=== PATIENT | male | born 1950 | race Caucasian/White ===

== ENCOUNTER → 2018-03-04 | Outpatient (CLI) | payer OTHER ==
[~2018-03-04] MED LIST: ENAL10 PO; SIMV40 PO; TEMA30 PO
== END | disposition home or self-care (01) ==
LOC: LAB 13:51 → LAB SHORT 13:51
DX: N39.0 Urinary tract infection, site not specified (principal)
CPT/HCPCS: 87086

== ENCOUNTER → 2018-03-26 | Outpatient (CLI) | payer OTHER ==
[2018-03-26 13:42] LABS: Appearance, Urine Clear (Clear); Bilirubin, Urine Neg (Neg); Blood, Urine 1+ (Neg); Color, Urine Yellow (P-Yellow); Glucose Qualitative, Urine 3+ (Neg); Ketones, Urine Neg (Neg); Leukocyte Esterase, Urine Neg (Neg); Nitrite, Urine Neg (Neg); Protein, Urine 2+ (Neg); Urobilinogen, Urine NORM (Normal)
[2018-03-26 13:58] LABS: Bacteria Rare /hpf; Red Blood Cells, Urine 0-2 /hpf (0-2); Squamous Epithelial Cells Few /hpf (Few); White Blood Cells, Urine 0-2 /hpf (0-5)
== END ==
LOC: LAB SHORT 11:03 → LAB 11:03
PROVIDERS: Family Medicine
DX: R31.9 Hematuria, unspecified (principal)
CPT/HCPCS: 81001

== ENCOUNTER 2018-06-04 07:16 | Day surgery (SDC) | payer OTHER ==
[~2018-06-04] VITALS: Ht 175.3 cm; Wt 105.2 kg
[~2018-06-04 07:16] MED LIST changes: +Depo-Testo100 MG/1 M IM; +Omeprazole20 M1 PO
== END 2018-06-04 22:41 | disposition home or self-care (01) ==
LOC: ORSCMMR 07:16 → ORD 08:45 → ORSCMMR 22:41
PROVIDERS: Surgery
PROC: BF031ZZ Plain Radiography of Gallbladder and Bile Ducts using Low Osmolar Contrast (ICD-10-PCS; principal; 2018-06-04 08:45)
PROC: 0FT44ZZ Resection of Gallbladder, Percutaneous Endoscopic Approach (ICD-10-PCS; principal; 2018-06-04 08:45)
DX: K80.10 Calculus of gallbladder with chronic cholecystitis without obstruction (principal); K21.9 Gastro-esophageal reflux disease without esophagitis; Z79.899 Other long term (current) drug therapy
CPT/HCPCS: 74300; 88304; C1729; J0690; J1100; J1885; J2250; J2405; J3010; J7030; J7120

== ENCOUNTER 2019-09-04 12:17 | Day surgery (SDC) | payer OTHER ==
[~2019-09-04] VITALS: Ht 175.3 cm; Wt 100.3 kg
--- NOTE | 2019-09-04 14:38 | NUR ---
History, Chart, Medications and Allergies reviewed before start of procedure. Patient confirms NPO status and agrees with scheduled surgery. Lungs clear T/O to Auscultation. Patient States Post-Procedure ride home has been arranged. Patient states colon prep results clear.
--- NOTE | 2019-09-04 14:53 | NUR ---
REPORT TO DOMINGO Flores RN.
[2019-09-04] MEDS ORDERED: PROP10 PO (14:55)
--- NOTE | 2019-09-04 15:42 | NUR ---
09/04/19 1542 Caden Issa History, Chart, Medications and Allergies reviewed before start of procedure.PATIENT DETERMINED TO BE ASA APPROPRIATE FOR PROPOFOL SEDATION PRIOR TO START OF PROCEDURE BY . MONITOR INTACT WITH CONTINUOUS PULSE OXIMETRY AND INTERMITTENT BP.3-LEAD EKG REVIEWED WITH PHYSICIAN PRIOR TO START OF PROCEDURE.O2 VIA N/C INTACT THROUGHOUT SEDATION/PROCEDURE.
--- NOTE | 2019-09-04 16:49 | NUR ---
"DAY SURGERY RN | DISCHARGE VSS. A/O. DENIES PAIN AND NAUSEA. DISCHARGE INSTRUCTIONS GIVEN BY MIGUELITO TRAMMELL. DENIES FURTHER QUESTIONS. TAKEN IN WHEELCHAIR TO FRONT ENTRANCE BY MIGUELITO TRAMMELL FOR RIDE HOME FROM . NO ISSUES."
== END 2019-09-04 23:35 | disposition home or self-care (01) ==
LOC: ORSCMMR 12:17 → ORD 14:00 → ORSCMMR 23:35
PROVIDERS: Internal Medicine Gastroenterology
PROC: 0DBL8ZX Excision of Transverse Colon, Via Natural or Artificial Opening Endoscopic, Diagnostic (ICD-10-PCS; principal; 2019-09-04 14:00)
PROC: 0DBM8ZX Excision of Descending Colon, Via Natural or Artificial Opening Endoscopic, Diagnostic (ICD-10-PCS; principal; 2019-09-04 14:00)
PROC: 0DBP8ZX Excision of Rectum, Via Natural or Artificial Opening Endoscopic, Diagnostic (ICD-10-PCS; principal; 2019-09-04 14:00)
DX: R19.4 Change in bowel habit (principal); K59.00 Constipation, unspecified; D12.3 Benign neoplasm of transverse colon; D12.4 Benign neoplasm of descending colon; K62.1 Rectal polyp; R10.9 Unspecified abdominal pain; I10 Essential (primary) hypertension; E78.5 Hyperlipidemia, unspecified; K21.9 Gastro-esophageal reflux disease without esophagitis; Z87.891 Personal history of nicotine dependence; Z79.899 Other long term (current) drug therapy
CPT/HCPCS: 88305; J2704; J7120

== ENCOUNTER 2020-08-31 05:34 | Day surgery (SDC) | payer OTHER ==
[~2020-08-31] VITALS: Ht 175.3 cm; Wt 105.8 kg
[~2020-08-31 05:34] MED LIST changes: +Curcumin1 GM PO; +HYDCHL25 PO; +HYDPAM50 PO; +IBUP400 PO; +PROP10 PO
--- NOTE | 2020-08-31 06:27 | NUR ---
Ambulatory in Day Surgery. Surgical site prepped with 2% Chlorhexidine cloth wipe. History, Chart, Medications and Allergies reviewed before start of procedure.Lungs clear T/O to Auscultation. Patient confirms NPO status and agrees with scheduled surgery. Pre-Op teaching done. Pt verbalizes understanding. Patient States Post-Procedure ride home has been arranged. Patient reports completing Chlorhexadine shower X2 prior to admission to hospital.
--- NOTE | 2020-08-31 18:26 | NUR ---
SHIFT SUMMARY PT HAS DONE WELL TODAY POST OP. SPINAL WORE OFF AND WAS ABLE TO WORK WITH THERAPY. EATING, DRINKING, AND VOIDING. HAS NOT TAKEN ANY NARCOTICS FOR PAIN AT THIS TIME.
--- NOTE | 2020-09-01 00:15 | NUR ---
DRESSING CHANGE AQUACEL DRESSING TO RIGHT HIP REMOVED D/T LOSS OF SEAL AND OOZING FROM UNDER DRESSING. AREA CLEANED WITH CHG SCRUB, AND NEW AQUACEL PLACED OVER OP SITE.
[2020-09-01 04:24] LABS: BASOPHILS ABSOLUTE AUTO 0.01 K/mm3 (0.00-0.23); BASOPHILS PERCENT AUTO 0 % (0-2); EOSINOPHILS PERCENT AUTO 0 % (0-6); Hematocrit 38.9 % (37.0-53.0); Hemoglobin 13.4 g/dL (13.5-17.5); IMMATURE GRAN ABSOLUTE AUTO 0.03 K/mm3 (0.00-0.10); IMMATURE GRAN PERCENT AUTO 0 % (0-1); LYMPHOCYTES PERCENT AUTO 7 % (21-46); MONOCYTES ABSOLUTE AUTO 0.99 K/mm3 (0.16-1.47); MONOCYTES PERCENT AUTO 9 % (4-13); Mean Corpuscular HGB 31.8 pg (26.0-34.0); Mean Corpuscular HGB Conc 34.4 g/dL (31.5-36.5); Mean Corpuscular Volume 92 fL (80-100); Mean Platelet Volume 11.1 fL (9.1-12.4); NEUTROPHILS ABSOLUTE AUTO 9.76 K/mm3 (1.96-9.15); NEUTROPHILS PERCENT AUTO 84 % (41-73); Platelet Count 137 K/mm3 (150-400); RDW Standard Deviation 40.3 fL (35.1-46.3); Red Blood Cell Count 4.22 M/mm3 (4.30-5.90); White Blood Cell Count 11.59 K/mm3 (4.00-11.30)
[2020-09-01 04:38] LABS: Bun/Creatinine Ratio 17.6 (12.0-20.0); Calcium, Blood 7.6 mg/dL (8.5-10.1); Creatinine, Blood 2.1 mg/dL (0.60-1.20); Potassium, Blood 4.4 mmol/L (3.5-5.5)
--- NOTE | 2020-09-01 05:40 | NUR ---
SHIFT SUMMARY LYING IN SEMI FOWLERS WITH EYES OPEN WHILE WATCHING TV. HAS RESTED WELL OFF AND ON THROUGHOUT SHIFT. AMBULATED IN HALLWAY WITH STANDBY ASSISTANCE, TOLERATED WELL. POLAR CHESTER TO RIGHT HIP WITH ICE IN BUCKET. AQUACEL C/D/I AFTER BEING REPLACED FOR OOZING AND PARTIAL SATURATION. DENIES PAIN, DISCOMFORT, OR FURTHER NEEDS. SAFETY MEASURES IN PLACE. WILL CONTINUE TO MONITOR AND GIVE HAND OFF TO ONCOMING SHIFT USING SBAR.
[2020-09-01] MEDS ORDERED: Percocet 5-3251 EACH PO (09:19)
[2020-09-01] MEDS ORDERED: ASPI81CH PO (09:19)
--- NOTE | 2020-09-01 10:09 | NUR ---
DISCHARGE CLEARED THERAPY. PAIN WELL CONTROLLED. EATING, DRINKING, AND VOIDING. DRSGS, SCRIPTS, AND POLAR PACK SENT. ESCORTED OUT VIA W/C.
== END 2020-09-01 10:00 | disposition home or self-care (01) ==
LOC: ORSCMMR 05:34 → ORD 07:30 → ORSCMMR 07:30 → SURS 11:34 → ORSCMMR 09-01 10:00 → SURS 09-01 10:00
PROVIDERS: Orthopaedic Surgery
PROC: 0SR90JA Replacement of Right Hip Joint with Synthetic Substitute, Uncemented, Open Approach (ICD-10-PCS; principal; 2020-08-31 07:30)
DX: M16.11 Unilateral primary osteoarthritis, right hip (principal); I10 Essential (primary) hypertension; K21.9 Gastro-esophageal reflux disease without esophagitis; E78.00 Pure hypercholesterolemia, unspecified; Z79.899 Other long term (current) drug therapy
CPT/HCPCS: 36415; 72170; 80048; 85025; 88300; 97110; 97116; 97162; 97530; A9270; A9270-GY; C1776; J0171; J0690; J0735; J1100; J1885; J2250; J2370; J2405; J2704; J2795; J3010; J7120

== ENCOUNTER 2021-03-07 14:37 | Emergency (ER) | payer OTHER ==
[~2021-03-07] VITALS: Ht 180.3 cm; Wt 106.6 kg
[~2021-03-07 14:37] MED LIST changes: +ASPI81CH PO; +Flonase 0.05% N16 GM; +Percocet 5-3251 EACH PO
[2021-03-07 15:13] LABS: BASOPHILS ABSOLUTE AUTO 0.02 K/mm3 (0.00-0.23); BASOPHILS PERCENT AUTO 0 % (0-2); EOSINOPHILS ABSOLUTE AUTO 0.07 K/mm3 (0.00-0.68); EOSINOPHILS PERCENT AUTO 1 % (0-6); Hematocrit 50.4 % (37.0-53.0); Hemoglobin 17.6 g/dL (13.5-17.5); IMMATURE GRAN ABSOLUTE AUTO 0.03 K/mm3 (0.00-0.10); IMMATURE GRAN PERCENT AUTO 0 % (0-1); LYMPHOCYTES ABSOLUTE AUTO 1.05 K/mm3 (0.84-5.20); LYMPHOCYTES PERCENT AUTO 13 % (21-46); MONOCYTES ABSOLUTE AUTO 0.97 K/mm3 (0.16-1.47); MONOCYTES PERCENT AUTO 12 % (4-13); Mean Corpuscular HGB 30.2 pg (26.0-34.0); Mean Corpuscular HGB Conc 34.9 g/dL (31.5-36.5); Mean Corpuscular Volume 87 fL (80-100); Mean Platelet Volume 10.3 fL (9.1-12.4); NEUTROPHILS ABSOLUTE AUTO 5.74 K/mm3 (1.96-9.15); NEUTROPHILS PERCENT AUTO 73 % (41-73); Platelet Count 163 K/mm3 (150-400); RDW Coefficient Variation 13.6 % (11.7-14.2); RDW Standard Deviation 42.8 fL (35.1-46.3); Red Blood Cell Count 5.82 M/mm3 (4.30-5.90); White Blood Cell Count 7.88 K/mm3 (4.00-11.30)
[2021-03-07 15:32] LABS: Albumin, Blood 3.8 g/dL (3.4-5.0); Albumin/Globulin Ratio 0.9 (0.8-1.8); Bilirubin, Total 1.7 mg/dL (0.1-1.0); Bun/Creatinine Ratio 13.3 (12.0-20.0); Calcium, Blood 8.8 mg/dL (8.5-10.1); Creatinine, Blood 1.66 mg/dL (0.60-1.20); Globulin, Blood 4.2 g/dL (2.2-4.0); Potassium, Blood 4.6 mmol/L (3.5-5.5)
[2021-03-07] MEDS ORDERED: HYDCHL25 PO (16:18)
[2021-03-07] MEDS ORDERED: GABA100 PO (16:20)
[2021-03-07] MEDS ORDERED: ALLOPURINOL100 M1 PO (16:21)
[2021-03-07] MEDS ORDERED: CLON.5 PO (16:23)
[2021-03-07] MEDS ORDERED: DEPO-TESTO200 MG/1 M IM (16:24)
[2021-03-07] MEDS ORDERED: EFFEXOR XR37.5 MG PO (16:24)
[2021-03-07] MEDS ORDERED: TEMA30 PO (16:25)
[2021-03-07] MEDS ORDERED: OMEP20ER PO (16:26)
[2021-03-07] MEDS ORDERED: ENAL10 PO (16:27)
== END 2021-03-07 16:45 | disposition home or self-care (01) ==
LOC: ER 14:37
PROVIDERS: Physician Assistant
DX: L03.116 Cellulitis of left lower limb (principal); Z79.899 Other long term (current) drug therapy
CPT/HCPCS: 36415; 80053; 85025; 96365; 99283-25; A9270; J0690

== ENCOUNTER 2021-04-15 09:26 | Day surgery (SDC) | payer OTHER ==
[~2021-04-15] VITALS: Ht 175.3 cm; Wt 99.7 kg
[~2021-04-15 09:26] MED LIST changes: +ALLOPURINOL100 M1 PO; +CLON.5 PO; +DEPO-TESTO200 MG/1 M IM; +EFFEXOR XR37.5 MG PO; +GABA100 PO; +OMEP20ER PO
--- NOTE | 2021-04-15 10:04 | NUR ---
04/15/21 1004 Tiffanie Moreau, RN CHARTING IN PREOP
== END 2021-04-15 14:15 | disposition home or self-care (01) ==
LOC: ORSCSDS 09:26
DX: M25.371 Other instability, right ankle (principal); M65.9 Synovitis and tenosynovitis, unspecified; M77.8 Other enthesopathies, not elsewhere classified; M19.071 Primary osteoarthritis, right ankle and foot; I10 Essential (primary) hypertension; Z87.891 Personal history of nicotine dependence; K21.9 Gastro-esophageal reflux disease without esophagitis; E78.00 Pure hypercholesterolemia, unspecified; Z79.899 Other long term (current) drug therapy; N18.9 Chronic kidney disease, unspecified
CPT/HCPCS: C1713; J0171; J0690; J1100; J2370; J2405; J2704; J3010; J7120

== ENCOUNTER 2021-06-03 06:58 | Day surgery (SDC) | payer OTHER ==
[~2021-06-03] VITALS: Ht 175.3 cm; Wt 102.9 kg
--- NOTE | 2021-06-03 08:12 | NUR ---
06/03/21 0812 Marcelle Hodgson 0.15CC OF EPI 1:1000 MIXED IN 30CC OF 0.5% BUPIVICAINE TO MAKE 1:200,000
--- NOTE | 2021-06-03 09:36 | NUR ---
06/03/21 0936 JULIUS MICHAUD 0925 PT UP TO BATHROOM- ABLE TO URINATE HE STATES
== END 2021-06-03 09:30 | disposition home or self-care (01) ==
LOC: ORSCSDS 06:58
PROVIDERS: Podiatrist Foot & Ankle Surgery
PROC: 0QBM0ZZ Excision of Left Tarsal, Open Approach (ICD-10-PCS; principal; 2021-06-03 08:15)
DX: M89.8X7 Other specified disorders of bone, ankle and foot (principal); M10.072 Idiopathic gout, left ankle and foot; I10 Essential (primary) hypertension; K21.9 Gastro-esophageal reflux disease without esophagitis; Z79.899 Other long term (current) drug therapy; E66.9 Obesity, unspecified; Z68.33 Body mass index [BMI] 33.0-33.9, adult
CPT/HCPCS: J0171; J0690; J1100; J2250; J2370; J2405; J2704; J3010; J7120

== ENCOUNTER 2021-07-04 11:08 | Emergency (ER) | payer OTHER ==
[~2021-07-04] VITALS: Ht 175.3 cm; Wt 104.3 kg
[2021-07-04] MEDS ORDERED: ENALAPRIL MALEA10 M2 PO (11:45)
[2021-07-04] MEDS ORDERED: XANAX0.25 MG PO (11:46)
[2021-07-04] MEDS ORDERED: REMERON15 M4 PO (11:48)
[2021-07-04] MEDS ORDERED: TEMAZEPAM PO (11:49)
[2021-07-04 11:54] LABS: BASOPHILS ABSOLUTE AUTO 0.01 K/mm3 (0.00-0.23); BASOPHILS PERCENT AUTO 0 % (0-2); EOSINOPHILS ABSOLUTE AUTO 0.15 K/mm3 (0.00-0.68); EOSINOPHILS PERCENT AUTO 3 % (0-6); Hemoglobin 17.1 g/dL (13.5-17.5); IMMATURE GRAN ABSOLUTE AUTO 0.02 K/mm3 (0.00-0.10); IMMATURE GRAN PERCENT AUTO 0 % (0-1); LYMPHOCYTES PERCENT AUTO 17 % (21-46); MONOCYTES ABSOLUTE AUTO 0.64 K/mm3 (0.16-1.47); MONOCYTES PERCENT AUTO 11 % (4-13); Mean Corpuscular HGB 30.7 pg (26.0-34.0); Mean Corpuscular HGB Conc 35.6 g/dL (31.5-36.5); Mean Corpuscular Volume 86 fL (80-100); Mean Platelet Volume 10.8 fL (9.1-12.4); NEUTROPHILS ABSOLUTE AUTO 4.11 K/mm3 (1.96-9.15); NEUTROPHILS PERCENT AUTO 69 % (41-73); Platelet Count 159 K/mm3 (150-400); RDW Coefficient Variation 12.9 % (11.7-14.2); RDW Standard Deviation 40.2 fL (35.1-46.3); Red Blood Cell Count 5.57 M/mm3 (4.30-5.90); White Blood Cell Count 5.93 K/mm3 (4.00-11.30)
[2021-07-04 12:22] LABS: Albumin, Blood 3.7 g/dL (3.4-5.0); Albumin/Globulin Ratio 0.9 (0.8-1.8); Bilirubin, Total 1.1 mg/dL (0.1-1.0); Bun/Creatinine Ratio 25.2 (12.0-20.0); Calcium, Blood 8.9 mg/dL (8.5-10.1); Creatinine, Blood 1.63 mg/dL (0.60-1.20); Globulin, Blood 4.2 g/dL (2.2-4.0); Potassium, Blood 4.2 mmol/L (3.5-5.5); Total Protein, Blood 7.9 g/dL (6.4-8.2)
[2021-07-04] MEDS ORDERED: CEPH500 PO (14:22)
== END 2021-07-04 14:30 | disposition home or self-care (01) ==
LOC: ER 11:08
PROVIDERS: Physician Assistant
DX: T81.49XA Infection following a procedure, other surgical site, initial encounter (principal); E87.1 Hypo-osmolality and hyponatremia; L03.116 Cellulitis of left lower limb; R00.0 Tachycardia, unspecified; I12.9 Hypertensive chronic kidney disease with stage 1 through stage 4 chronic kidney disease, or unspecified chronic kidney disease; N18.9 Chronic kidney disease, unspecified; K21.9 Gastro-esophageal reflux disease without esophagitis; Z85.528 Personal history of other malignant neoplasm of kidney; Z87.891 Personal history of nicotine dependence; Z79.899 Other long term (current) drug therapy; Y83.8 Other surgical procedures as the cause of abnormal reaction of the patient, or of later complication, without mention of misadventure at the time of the procedure
CPT/HCPCS: 36415; 73630; 80053; 85025; 85651; 96365; 99284-25; J0690